=== PATIENT | male | born 1995 | race Caucasian/White ===

== ENCOUNTER 2017-10-04 21:50 | Emergency (ER) | payer OTHER ==
[~2017-10-04] VITALS: Ht 167.6 cm; Wt 76.5 kg
[2017-10-04 21:54] VITALS: Ht 167.6 cm; Wt 76.5 kg
[2017-10-04] MEDS ORDERED: DEXAMETHASONE 10 MG/ML 1 ML INJ IM STA (22:21)
[2017-10-04] MEDS ORDERED: IPRATROPIUM (NEB) 0.5 MG/2.5 ML AMP NEB STA (22:21)
[2017-10-04] MEDS ORDERED: ALBUTEROL 0.5% (NEB) 2.5 MG/0.5 ML AMP INH STA (22:21)
--- NOTE | 2017-10-04 23:21 | ERD ---
ER Documentation Chief Complaint Chief Complaint cough x 5 days, w/sob HPI Patient is a 22-year-old male with past medical history of wheezing presenting to the emergency department with complaints of shortness of breath, cough, and wheezing which onset suddenly this morning. Symptoms are worse when he is in hot environment. Symptoms currently constant. He denies fevers, chills, or other symptoms at this time. ROS All systems reviewed and are negative except as per history of present illness. Medications Home Meds Active Scripts Albuterol Sulfate* (Ventolin HFA*) 18 Gm Hfa.aer.ad, 2 PUFF INHALATION Q4H, #1 INHALER Prov:URBANO LANDON PA-C 10/04/17 Azithromycin* (Zithromax*) 250 Mg Tablet, 250 MG PO .ZPACK DIRECTED, #6 TAB TAKE 500 MG (2 TABS) THE FIRST DAY THEN 250 MG (1 TAB) DAYS 2-5 Prov:URBANO LANDON PA-C 10/04/17 Allergies Allergies: Coded Allergies: No Known Allergy (Unverified , 10/04/17) Physical Exam Vitals Vital Signs Date Time Temp Pulse Resp B/P Pulse Ox O2 Delivery O2 Flow Rate FiO2 10/04/17 23:40 Vapotherm 10 10/04/17 23:03 83 22 96 21 10/04/17 21:54 98.4 94 20 132/80 96 Physical Exam Const: Nontoxic, well-appearing male in no acute distress. Head: Atraumatic Eyes: Normal Conjunctiva ENT: Normal External Ears, Nose and Mouth. Resp: Clear to auscultation bilaterally mild inspiratory wheezing noted to all lung ceron. No signs of respiratory distress. No retractions. No crackles. Cardio: Regular rate and rhythm, no murmurs Skin: No petechiae or rashes Ext: No cyanosis, or edema Neur: Awake and alert Psych: Normal Mood and Affect Results 24 hrs Current Medications Medications (Trade) Dose Ordered Sig/Marcelino Route PRN Reason Start Time Stop Time Status Last Admin Dose Admin Ipratropium [place] (Atrovent 0.02% (Neb)) 0.5 mg ONCE STAT NEB 10/04/17 22:21 10/04/17 22:23 DC 10/04/17 23:03 Albuterol (Proventil 0.5% (Neb)) 5 mg ONCE STAT INH 10/04/17 22:21 10/04/17 22:23 DC 10/04/17 23:03 Dexamethasone (Decadron) 10 mg ONCE STAT IM 10/04/17 22:21 10/04/17 22:23 DC 10/04/17 22:29 Procedures/MDM Patient is a pleasant 22-year-old male presenting to the emergency department with complaints of wheezing and shortness of breath and cough. Physical examination does reveal wheezing. No retractions or signs of respiratory distress. The patient was given a 1 hour treatment of albuterol plus ipratropium breathing treatment as well as IM Decadron and he was feeling significantly improved prior to discharge. Wheezing improved on examination. The patient was stable and appropriate for outpatient management with a prescription for albuterol inhaler and azithromycin. Physical examination is consistent with bronchitis and wheezing. Low Suspicion for status asthmaticus, pneumonia, pneumothorax, pulmonary embolism, sepsis, or other emergent conditions. No evidence of life-threatening pathology at time of discharge. Pt/family in agreement with discharge plan/diagnosis. Pt/family advised to return immediately with any new or worsening symptoms. Follow-up with primary care physician within the next 1-2 days. Disclaimer: Inadvertent spelling and grammatical errors are likely due to EHR/ dictation software use and do not reflect on the overall quality of patient care. Also, please note that the electronic time recorded on this note does not necessarily reflect the actual time of the patient encounter. Departure Diagnosis: Primary Impression: Bronchitis Additional Impression: Wheezing Condition: URBANO Quick PA-C Oct 04, 2017 23:21
[2017-10-04] MEDS ORDERED: AZIT250T94 PO (23:42)
[2017-10-04] MEDS ORDERED: ALBU18HF INHALATION (23:42)
[2017-10-04 23:58] VITALS: BP 125/71; PULSE 79; RESP 19; TEMP 98.2
== END 2017-10-05 | disposition home or self-care (01) ==
LOC: FTE 21:50
DX: J20.9 Acute bronchitis, unspecified (principal); R06.2 Wheezing
CPT/HCPCS: 94644; 96372; J1100; Z7502; Z7610